=== PATIENT | male | born 1955 | race Hispanic/Latino ===

== ENCOUNTER 2017-03-14 09:12 | Emergency (ER) | payer MEDICAID ==
[2017-03-14 09:13] VITALS: BMI 22.8
[2017-03-14 09:57] VITALS: RESP 18; TEMP 98.1; O2SAT 100
--- NOTE | 2017-03-14 10:02 | ED PDOC ---
Arrival/HPI - History of Present Illness Time/Duration: Other (about 12 hours ago) <Caitlin Montana - Last Filed: 03/14/17 11:35> <Cele Ridley - Last Filed: 03/14/17 12:05> - General Chief Complaint: Abnormal Skin Integrity Time Seen by Provider: 03/14/17 09:58 - History of Present Illness Narrative History of Present Illness (Text): 03/14/17 09:59 62M presents to ER with laceration on face after a fall. Patient was taking his mom home and tripped and fell faceforward onto handlebars of a wheelchair at home yesterday afternoon (mechanical fall). Patient states he could not come in until today because the tile setter apprentice wasn't home to take care of his mother. Patient denies loss of consciousness, headache, vision changes. Patient states he has no other complaints. Patient requests doctor's note for visit (Caitlin Montana ) Past Medical History - Tetanus Immunization Tetanus Immunization: Unknown - Past Medical History Past Medical History: No Previous - Cardiac Hx Cardiac Disorders: No - Pulmonary Hx Respiratory Disorders: Yes Hx Emphysema: Yes - Neurological Hx Neurological Disorder: No - HEENT Hx HEENT Disorder: No - Renal Hx Renal Disorder: No - Endocrine/Metabolic Hx Endocrine Disorders: No - Hematological/Oncological Hx Blood Disorders: No - Integumentary Hx Dermatological Disorder: No - Musculoskeletal/Rheumatological Hx Musculoskeletal Disorders: No - Gastrointestinal Hx Gastrointestinal Disorders: No - Genitourinary/Gynecological Hx Genitourinary Disorders: No - Psychiatric Hx Psychophysiologic Disorder: No Hx Substance Use: No - Past Surgical History Past Surgical History: No Previous - Anesthesia Hx Anesthesia: No - Suicidal Assessment Feels Threatened In Home Enviroment: No <Caitlin Montana - Last Filed: 03/14/17 11:35> Family/Social History Family/Social History: Unknown Family HX Smoking Status: Heavy Smoker > 10 Cigarettes Daily Hx Alcohol Use: No Hx Substance Use: No Hx Substance Use Treatment: Yes <Caitlin Montana - Last Filed: 03/14/17 11:35> Allergies/Home Meds <Caitlin Montana - Last Filed: 03/14/17 11:35> <Cele Ridley - Last Filed: 03/14/17 12:05> Allergies/Adverse Reactions: Allergies No Known Allergies Allergy (Verified 03/14/17 09:39) Review of Systems - Physician Review All systems were reviewed & negative as marked: Yes - Review of Systems Eyes: absent: Vision Changes, Photophobia, Eye Pain ENT: absent: Hearing Changes, Tinnitus, TMJ Pain Respiratory: absent: SOB, Cough, Sputum, Wheezing Cardiovascular: absent: Chest Pain, Palpitations, Edema Gastrointestinal: absent: Abdominal Pain, Stool Changes, Constipation, Diarrhea Genitourinary Male: absent: Dysuria, Frequency, Hematuria Musculoskeletal: absent: Arthralgias, Back Pain, Neck Pain, Joint Swelling Skin: absent: Rash, Pruritis, Skin Lesions, Laceration, Abscess Neurological: absent: Headache, Dizziness, Focal Weakness, Gait Changes, Speech Changes, Facial Droop, Disequilibrium, Seizure Hemo/Lymphatic: absent: Adenopathy, Easy Bleeding, Easy Bruising Psychiatric: absent: Anxiety, Depression, Suicidal Ideation <Eng,Caitlin - Last Filed: 03/14/17 11:35> Physical Exam Temperature: Afebrile Blood Pressure: Hypertensive Pulse: Regular Respiratory Rate: Normal Appearance: Positive for: Comfortable Pain Distress: Mild Mental Status: Positive for: Alert and Oriented X 3 - Systems Exam Head: Present: Normocephalic, Laceration Pupils: Present: PERRL Extroacular Muscles: Present: EOMI. No: Gaze Palsy Conjunctiva: Present: Normal. No: Injected Ears: Present: NORMAL TM. No: Erythema, Normal Canal Mouth: Present: Moist Mucous Membranes, Normal Teeth Pharnyx: Present: Normal Nose (External): Present: Atraumatic Nose (Internal): Present: Normal Inspection Neck: Present: Normal Range of Motion. No: JVD, Lymphadenopathy Respiratory/Chest: Present: Clear to Auscultation. No: Good Air Exchange, Accessory Muscle Use Cardiovascular: Present: Regular Rate and Rhythm, Normal S1, S2 Upper Extremity: Present: Normal Inspection, Capillary Refill < 2s Lower Extremity: Present: Normal Inspection, Capillary Refill < 2 s Skin: Present: Warm, Laceration (right cheek, skin flap is not viable for suturing) Psychiatric: Present: Alert, Oriented x 3 <Eng,Caitlin - Last Filed: 03/14/17 11:35> Vital Signs Temp Pulse Resp BP Pulse Ox 03/14/17 11:11 62 18 168/79 H 100 03/14/17 09:56 98.1 F 64 18 177/84 H 100 Medical Decision Making Re-evaluation Time: 11:20 Reassessment Condition: Re-examined, Unchanged <Caitlin Montana - Last Filed: 03/14/17 11:35> <Cele Ridley - Last Filed: 03/14/17 12:05> ED Course and Treatment: 03/14/17 11:36 Patient cleaned and dressings placed. (Caitlin Montana) 03/14/17 11:40 Nima Koenig a 62 year old male who presents to the emergency department complaining of a laceration s/p fall yesterday afternoon. In agreement with resident note, which includes further HPI details. Patient was seen and evaluated with resident, came up with plan and treatment together. (Cele Ridley) - PA / PARTNER [employer]NER / Resident Statement MD/DO has reviewed & agrees with the documentation as recorded. <Cele Ridley - Last Filed: 03/14/17 12:05> Disposition/Present on Arrival - Present on Arrival Any Indicators Present on Arrival: Yes History of DVT/PE: No History of Uncontrolled Diabetes: No Urinary Catheter: No History of Decub. Ulcer: No History Surgical Site Infection Following: None - Disposition Have Diagnosis and Disposition been Completed?: Yes Disposition Time: 11:37 Patient Plan: Discharge <Caitlin Montana - Last Filed: 03/14/17 11:35> - Present on Arrival Any Indicators Present on Arrival: Yes <Cele Ridley - Last Filed: 03/14/17 12:05> - Disposition Diagnosis: Laceration of face with delay in treatment Disposition: HOME/ ROUTINE Patient Problems: Current Active Problems Problem Status Onset Laceration of face with delay in treatment Acute Condition: FAIR Discharge Instructions (ExitCare): Facial Laceration (ED), Laceration Without Closure (ED) Print Language: CROATIAN Additional Instructions: Please apply bacitracin or neosporin 2-3 x daily. Return for any signs of worsiening infection such as 1) spreading redness 2) pustulent leakage/drainage 3) intractable facial pain w/ heat as then you may need antibiotics and further investigation. Prescriptions: Bacitracin OINT 1 applic TOP TID #1 tube Referrals: Don Rod MD [Primary Care Provider] - Follow up with primary Forms: [facility] (Yoruba)
[2017-03-14 11:12] VITALS: BP 168/79; PULSE 62
== END 2017-03-14 12:36 | disposition home or self-care (01) ==
LOC: ED 09:12
DX: S01.411A Laceration without foreign body of right cheek and temporomandibular area, initial encounter (principal); W01.198A Fall on same level from slipping, tripping and stumbling with subsequent striking against other object, initial encounter; Y92.009 Unspecified place in unspecified non-institutional (private) residence as the place of occurrence of the external cause

== ENCOUNTER 2018-02-02 10:38 | Inpatient (IN) | payer MEDICAID ==
[2018-02-02 10:53] VITALS: BMI 20.7
--- NOTE | 2018-02-02 11:19 | ED PDOC ---
Arrival/HPI - General Chief Complaint: Psychiatric Evaluation - History of Present Illness Narrative History of Present Illness (Text): 02/02/18 11:19 62 y/o M w/ pmhx of bipolar disorder, presents to the emergency department accompanied by his brother for a psychiatric evaluation. Patient's brother reports patient has been having an emotional crisis ever since their mother pas sed away a few days ago and is living alone for the first time. Per patient's brother, for 3 days straight the patient has not been sleeping properly and went out during the night stealing Scooby trees from a local shop. The patient's brother states the patient is not on any current medication and is able to take care of himself. Patient denies any fever, chills, shortness of breath, chest pain, diarrhea, nausea, vomiting, urinary symptoms, back pain, neck pain, headache, dizziness, SI, HI, or any other complaints. PMD: Dr. 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 - HEENT Hx HEENT Disorder: No - Renal Hx Renal Disorder: No - Endocrine/Metabolic Hx Endocrine Disorders: No - Hematological/Oncological Hx Blood Disorders: No - Integumentary Hx Dermatological Disorder: No - Musculoskeletal/Rheumatological Hx Musculoskeletal Disorders: No - Gastrointestinal Hx Gastrointestinal Disorders: No - Genitourinary/Gynecological Hx Genitourinary Disorders: No - Psychiatric Hx Psychophysiologic Disorder: No Hx Substance Use: No - Past Surgical History Past Surgical History: No Previous - Anesthesia Hx Anesthesia: No Hx Anesthesia Reactions: No Hx Malignant Hyperthermia: No - Suicidal Assessment Feels Threatened In Home Enviroment: No Family/Social History - Physician Review Nursing Documentation Reviewed: Yes Family/Social History: Unknown Family HX Smoking Status: Heavy Smoker > 10 Cigarettes Daily Hx Alcohol Use: No Hx Substance Use: No Hx Substance Use Treatment: Yes Allergies/Home Meds Allergies/Adverse Reactions: Allergies No Known Allergies Allergy (Verified 02/05/18 20:39) Review of Systems - Physician Review All systems were reviewed & negative as marked: Yes - Review of Systems Constitutional: absent: Fevers, Night Sweats Respiratory: absent: SOB Cardiovascular: absent: Chest Pain Gastrointestinal: absent: Diarrhea, Nausea, Vomiting Genitourinary Male: absent: Urinary Output Changes Musculoskeletal: absent: Back Pain, Neck Pain Neurological: absent: Headache, Dizziness Psychiatric: absent: Suicidal Ideation Physical Exam Vital Signs Reviewed: Yes Vital Signs Temp Pulse Resp BP Pulse Ox 02/02/18 10:59 98.0 F 76 16 173/95 H 98 Temperature: Afebrile Blood Pressure: Hypertensive Pulse: Regular Respiratory Rate: Normal Appearance: Positive for: Well-Appearing, Non-Toxic, Comfortable Pain Distress: None - Systems Exam Head: Present: Atraumatic, Normocephalic Pupils: Present: PERRL Extroacular Muscles: Present: EOMI Conjunctiva: Present: Normal Mouth: Present: Moist Mucous Membranes Neck: Present: Normal Range of Motion Respiratory/Chest: Present: Clear to Auscultation, Good Air Exchange. No: Respiratory Distress, Accessory Muscle Use Cardiovascular: Present: Regular Rate and Rhythm, Normal S1, S2. No: Murmurs Abdomen: No: Tenderness, Distention, Peritoneal Signs Back: Present: Normal Inspection Upper Extremity: Present: Normal Inspection. No: Cyanosis, Edema Lower Extremity: Present: Normal Inspection. No: Edema Neurological: Present: GCS=15, CN II-XII Intact, Speech Normal Skin: Present: Warm, Dry, Normal Color. No: Rashes Psychiatric: Present: Alert, Oriented x 3, Normal Insight, Normal Concentration Medical Decision Making ED Course and Treatment: 02/02/18 11:20 Impression: 62 y/o M presents to the emergency department accompanied by his brother for a psychiatric evaluation. Differential Diagnosis included but are not limited to: --Depression --Adjustment disorder --Schizoaffective disorder Plan: -- Labs -- Chest X-ray -- Urinalysis --Urine drug screen --PES evaluation -- Reassess and disposition Prior Visits: Notes and results from previous visits were reviewed. Progress Notes: 02/02/18 13:04 Labs reviewed with no acute abnormalities. Patient is medically cleared. PES wind projects supervisor called. 02/02/18 19:15 Patient accepted onto psychiatric floor under Dr. Judge. He is stable for transport. - Lab Interpretations Lab Results: 02/02/18 11:05 02/02/18 11:05 Lab Results 02/02/18 12:05: Urine Color Yellow, Urine Appearance Clear, Urine pH 7.0, Ur Specific [place] <= 1.005, Urine Protein Negative, Urine Glucose (UA) Negative, Urine Ketones Negative, Urine Blood Negative, Urine Nitrate Negative, Urine Bilirubin Negative, Urine Urobilinogen 0.2, Ur Leukocyte Esterase Negative 02/02/18 12:05: Urine Opiates Screen Negative, Urine Methadone Screen Negative, Ur Barbiturates Screen Negative, Ur Phencyclidine Scrn Negative, Ur Amphetamines Screen Negative, U Benzodiazepines Scrn Negative, U Oth Cocaine Metabols Negative, U Cannabinoids Screen Negative 02/02/18 11:05: Free T4 1.07, TSH 3rd Generation 2.37, Alcohol, Quantitative < 10 02/02/18 11:05: Sodium 140, Potassium 3.6, Chloride 107, Carbon Dioxide 31, Anion Gap 6 L, BUN 17, Creatinine 0.8, Est GFR ( Amer) > 60, Est GFR (Non-Af Amer) > 60, Random Glucose 122 H, Calcium 9.7, Total Bilirubin 0.5, AST 27, ALT 27, Alkaline Phosphatase 80, Total Protein 6.7, Albumin 4.0, Globulin 2.7, Albumin/Globulin Ratio 1.5 02/02/18 11:05: WBC 9.9, RBC 4.60, Hgb 15.5, Hct 46.0, MCV 100.0, MCH 33.7, MCHC 33.7, RDW 13.4, Plt Count 250, MPV 9.6, Gran % 75.4 H, Lymph % (Auto) 19.3 L, [place] % (Auto) 4.7, Eos % (Auto) 0.3 L, Baso % (Auto) 0.3, Gran # 7.47 H, Lymph # (Auto) 1.9, [place] # (Auto) 0.5, Eos # (Auto) 0.0, Baso # (Auto) 0.03 02/02/18 11:05: Salicylates < 1 L, Acetaminophen < 10.0 L - RAD Interpretation Narrative RAD Interpretations (Text): 12/07/18 13:22 Procedure: Chest X-ray Impression: No active disease. Dictator: Joselito Mcintosh MD Radiology Orders: 02/02/18 11:04 CHEST PORTABLE [RAD] Stat High Wire Artist: Radiologist - Ndaineibsilverio Statement The provider has reviewed the documentation as recorded by the Nadineibsilverio Finch All medical record entries made by the Scribe were at my direction and personally dictated by me. I have reviewed the chart and agree that the record accurately reflects my personal performance of the history, physical exam, medical decision making, and the department course for this patient. I have also personally directed, reviewed, and agree with the discharge instructions and disposition. Disposition/Present on Arrival - Present on Arrival Any Indicators Present on Arrival: No History of DVT/PE: No History of Uncontrolled Diabetes: No Urinary Catheter: No History of Decub. Ulcer: No History Surgical Site Infection Following: None - Disposition Have Diagnosis and Disposition been Completed?: Yes Diagnosis: Adjustment disorder Disposition: HOSPITALIZED Disposition Time: 18:15 Patient Plan: Admission Patient Problems: Current Active Problems Problem Status Onset Adjustment disorder Acute Condition: STABLE
[2018-02-02 11:23] LABS: BASO # 0.03 K/mm3 (0.0-2.0); BASO % 0.3 % (0.0-3.0); EOS % 0.3 % (1.5-5.0); GRAN # 7.47 (1.4-6.5); GRAN % 75.4 % (50.0-68.0); HEMOGLOBIN 15.5 g/dL (14.0-18.0); LYMPH # 1.9 (1.2-3.4); LYMPH % 19.3 % (22.0-35.0); MEAN CORPUSCULAR HEMOGLOBIN 33.7 pg (25.0-35.0); MEAN CORPUSCULAR HGB CONC 33.7 g/dl (31.0-37.0); MEAN PLATELET VOLUME 9.6 fl (7.0-11.0); MONO # 0.5 (0.1-0.6); MONO % 4.7 % (1.0-6.0); RBC 4.6 10^6/uL (3.5-6.1); RED CELL DISTRIBUTION WIDTH 13.4 % (11.5-14.5); WHITE BLOOD COUNT 9.9 10^3/uL (4.5-11.0)
[2018-02-02 11:40] LABS: ALB/GLOB RATIO 1.5 (1.1-1.8); ALT/SGPT 27 U/L (7-56); AST/SGOT 27 U/L (17-59); BLOOD UREA NITROGEN 17 mg/dL (7-21); CALCIUM 9.7 mg/dL (8.4-10.5); GFR NON-AFRICAN AMERICAN > 60
[2018-02-02 11:52] LABS: ACETAMINOPHEN < 10.0 ug/ml (10.0-20.0); SALICYLATE < 1 mg/dL (2.0-20.0)
[2018-02-02 12:09] LABS: FREE T4 1.07 ng/dL (0.78-2.19)
[2018-02-02 12:21] LABS: URINE BILIRUBIN NEGATIVE (NEGATIVE); URINE BLOOD NEGATIVE (NEGATIVE); URINE GLUCOSE (UA) NEGATIVE (NEGATIVE); URINE LEUKOCYTE ESTERASE NEGATIVE Leu/uL (NEGATIVE); URINE PROTEIN NEGATIVE mg/dL (<30 mg/dL); URINE UROBILINOGEN 0.2 E.U./dL (<1 E.U./dL)
[2018-02-02 12:25] LABS: URINE APPEARANCE CLEAR (CLEAR); URINE COLOR YELLOW (YELLOW)
[2018-02-02 12:40] LABS: BARBITURATES, UR NEGATIVE (NEGATIVE); BENZODIAZEPINES, UR NEGATIVE (NEGATIVE); OPIATES, UR NEGATIVE (NEGATIVE); PHENCYCLIDINE, UR NEGATIVE (NEGATIVE)
--- NOTE | 2018-02-02 12:56 | RAD ---
Date of service: 02/02/2018 HISTORY: sob COMPARISON: No prior. FINDINGS: LUNGS: No active pulmonary disease. PLEURA: No significant pleural effusion identified, no pneumothorax apparent. CARDIOVASCULAR: No aortic atherosclerotic calcification present. Normal cardiac size. No pulmonary vascular congestion. OSSEOUS STRUCTURES: Severe scoliosis convex to the right VISUALIZED UPPER ABDOMEN: Normal. OTHER FINDINGS: None. IMPRESSION: No active disease.
--- NOTE | 2018-02-02 16:17 | CARD ---
APPROVED REPORT Date of service: 02/02/2018 EKG Measurement Heart [id number] <Conclusion> Normal sinus rhythm Possible Left atrial enlargement Borderline ECG
[2018-02-02 21:54] VITALS: O2SAT 100
[2018-02-02] MEDS ORDERED: Magnesium Hydroxide Susp 30 ml UD PO PRN (22:31)
[2018-02-02] MEDS ORDERED: Alum-Mag Hydrox-Simethicone Susp (30 mL) PO PRN (22:32)
--- NOTE | 2018-02-02 23:29 | PCM.BM ---
Treatment Plan Problems - Problems identified on initial assessmt Ineffective coping Date Initiated: 02/02/18 Time Initiated: 22:50 Assessment reference: NA Status: Active
[2018-02-03] MEDS: Divalproex 250 mg DR (BID formulation) PO SCH ×2 (10:55→22:09)
--- NOTE | 2018-02-03 11:12 | PCM.PSYCH ---
Initial Psychiatric Evaluation - Initial Psychiatric Evaluation Type of Admission: Voluntary Legal Status: Capacity History of Present Illness and Precipitating Events: Patient is a 62 yo single male with a reported psychiatric history of bipolar disorder, no prior psychiatric admissions, very remote treatment of vincent with lithium x25 years ago e who was brought to the ER by his brother, Chinmay Lloyd (who is reportedly his POA) for a psychiatric evaluation after patient demonstrated change in mental status and behavior following the of his mother a few days ago. According to ER records patient is now living alone after his mother a few days ago. Patient has not been sleeping for 3-4 days and acting impulsively/bizarrely. Apparently he recently went out at night stealing [employer] trees from a local shop. Patient's brother is patient's POA and feels that patient cannot care for himself. POA indicated that patient suffered a TBI as an and had [place] measles as a child. I met with patient at bedside. He is well groomed and oriented to month, year, location and superficially to circumstances. He is cooperative and has been in good control. Indicates that he feels "a lot better now" since he was able to sleep. Indicates he has been stressed and grieving the of his mother which contributed to his lack of sleep. Then the lack of sleep contributed to his strange behaviors. He seems remorseful and fairly related though odd. Patient denies any hallucinations, paranoia, SI or HI. Tolerating medications and denies any new discomfort or pain. PSYCHIATRIC HISTORY Prior diagnosis of bipolar disorder. Treated >25 years ago for a manic episode. No current outpatient treatment or medications. SOCIAL HISTORY Single. No kids. Graduated HS. Currently resides by himself since his mother a few days ago. His brother, Chinmay Lloyd is patient's POA and was mother' s POA as well. 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 Patient denies any illicit drugs or alcohol use. He smokes a pack of cigarettes daily. Current Medications: Active Medications Generic Name Dose Route Start Last Admin Trade Name Freq PRN Reason Stop Dose Admin Acetaminophen 650 mg 02/02/18 22:31 Tylenol 325mg Tab PO Q4H PRN Pain, moderate (4-7) Al Hydrox/Mg Hydrox/Simethicone 30 ml 02/02/18 22:32 Maalox Plus 30 Ml PO DAILY PRN Indigestion / Heartburn Chlorpromazine 50 mg 02/02/18 22:35 Thorazine PO Q6 PRN Agitation Protocol Divalproex Sodium 250 mg 02/03/18 10:00 Depcarlos Cat (*Bid*) PO [facility] CHRISTINA Protocol Magnesium Hydroxide 30 ml 02/02/18 22:31 Milk Of Magnesia PO DAILY PRN Constipation Quetiapine Fumarate 50 mg 02/03/18 22:00 Seroquel PO HS CHRISTINA Protocol Zaleplon 5 mg 02/02/18 22:34 Sonata PO HS PRN Insomnia Present on Admission - Present on Admission Any Indicators Present on Admission: No - Notes: Notes:: Please refer to patient's physical exam and ROS findings from [facility] ER report dated 02/02/18 Review of Systems - Review of Systems Review of Systems: Please refer to patient's physical exam and ROS findings from [facility] ER report dated 02/02/18 - Constitutional Constitutional: As Per HPI - EENT Eyes: As Per HPI Ears: As Per HPI Nose/Mouth/Throat: As Per HPI - Cardiovascular Cardiovascular: As Per HPI - Respiratory Respiratory: As Per HPI - Gastrointestinal Gastrointestinal: As Per HPI - Genitourinary Genitourinary: As Per HPI, Urinary Hesitance - Reproductive: Male Reproductive:Male: As Per HPI - Musculoskeletal Musculoskeletal: As Per HPI - Neurological Neurological: As Per HPI - Psychiatric Psychiatric: As Per HPI - Endocrine Endocrine: As Per HPI - Hematologic/Lymphatic Hematologic: As Per HPI Past Patient History - Past Psychiatric History Previous Treatment History: Inpatient Prior Professional Help: See HPI - PSYCHIATRIC Hx Psychophysiologic Disorder: No Hx Substance Use: No - Tetanus Immunizations Tetanus Immunization: Unknown - CARDIAC Hx Cardiac Disorders: No - PULMONARY Hx Respiratory Disorders: Yes Hx Emphysema: Yes - NEUROLOGICAL Hx Neurological Disorder: Yes Other/Comment: TBI as s/p [place] measles. - HEENT Hx HEENT Problems: No - RENAL Hx Chronic Kidney Disease: No - ENDOCRINE/METABOLIC Hx Endocrine Disorders: No - HEMATOLOGICAL/ONCOLOGICAL Hx Blood Disorders: No - INTEGUMENTARY Hx Dermatological Problems: No - MUSCULOSKELETAL/RHEUMATOLOGICAL Hx Musculoskeletal Disorders: No - GASTROINTESTINAL Hx Gastrointestinal Disorders: No - GENITOURINARY/GYNECOLOGICAL Hx Genitourinary Disorders: No - SURGICAL HISTORY Hx Surgeries: No - ANESTHESIA Hx Anesthesia: No Hx Anesthesia Reactions: No Hx Malignant Hyperthermia: No - Medical/Surgical History Reviewed & confirmed: by nm Meds Allergies/Adverse Reactions: Allergies Allergy/AdvReac Type Severity Reaction Status Date / Time No Known Allergies Allergy Verified 03/14/17 09:39 Mental Status Examination - Personal Presentation Personal Presentation: Looks stated age - Affect Affect: Constricted - Motor Activity Motor Activity: Calm - Reliability in Providing Information Reliability in Providing Information: Fair - Speech Speech: Coherent - Mood Mood: Depressed - Formal Thought Process Formal Thought Process: No Impairment - Obsessions/Compulsions Obsessions: No Compulsions: No - Cognitive Functions Orientation: Person, Place Sensorium: Alert, Lethargic Attention/Concentration: Easily distracted Abstract Thinking: [place] Estimate of Intelligence: Average Judgement: Imparied, as evidence by: Poor judgement, Imparied, as evidence by: Lack of insight into illness - Risk Risk: Diminished functioning - Strength & Assets Inventory Strength & Assets Inventory: Cooperative - Limitations Limitations: Living alone Psychiatric Physical Exam - Physical Exam Reviewed and confirmed: Emergency Department Physical Exam (Please refer to patient's physical exam and ROS findings from [facility] ER report dated 02/02/18) Results - Vital Signs Recent Vital Signs: Last Vital Signs Temp 98.0 F 02/02/18 10:59 Pulse 70 02/02/18 21:45 Resp 18 02/02/18 22:54 BP 144/87 02/02/18 21:45 Pulse Ox 100 02/02/18 21:45 - Labs Result Diagrams: 02/02/18 11:05 02/02/18 11:05 Labs: Laboratory Results - last 24 hr 02/02/18 02/02/18 02/02/18 11:05 11:05 11:05 WBC 9.9 RBC 4.60 Hgb 15.5 Hct 46.0 MCV 100.0 MCH 33.7 MCHC 33.7 RDW 13.4 Plt Count 250 MPV 9.6 Gran % 75.4 H Lymph % (Auto) 19.3 L [place] % (Auto) 4.7 Eos % (Auto) 0.3 L Baso % (Auto) 0.3 Gran # 7.47 H Lymph # (Auto) 1.9 [place] # (Auto) 0.5 Eos # (Auto) 0.0 Baso # (Auto) 0.03 Sodium 140 Potassium 3.6 Chloride 107 Carbon Dioxide 31 Anion Gap 6 L BUN 17 Creatinine 0.8 Est GFR ( Amer) > 60 Est GFR (Non-Af Amer) > 60 Random Glucose 122 H Calcium 9.7 Total Bilirubin 0.5 AST 27 ALT 27 Alkaline Phosphatase 80 Total Protein 6.7 Albumin 4.0 Globulin 2.7 Albumin/Globulin Ratio 1.5 Free T4 TSH 3rd Generation Urine Color Urine Appearance Urine pH Ur Specific [place] Urine Protein Urine Glucose (UA) Urine Ketones Urine Blood Urine Nitrate Urine Bilirubin Urine Urobilinogen Ur Leukocyte Esterase Salicylates < 1 L Urine Opiates Screen Urine Methadone Screen Acetaminophen < 10.0 L Ur Barbiturates Screen Ur Phencyclidine Scrn Ur Amphetamines Screen U Benzodiazepines Scrn U Oth Cocaine Metabols U Cannabinoids Screen Alcohol, Quantitative 02/02/18 02/02/18 02/02/18 11:05 12:05 12:05 WBC RBC Hgb Hct MCV MCH MCHC RDW Plt Count MPV Gran % Lymph % (Auto) [place] % (Auto) Eos % (Auto) Baso % (Auto) Gran # Lymph # (Auto) [place] # (Auto) Eos # (Auto) Baso # (Auto) Sodium Potassium Chloride Carbon Dioxide Anion Gap BUN Creatinine Est GFR ( Amer) Est GFR (Non-Af Amer) Random Glucose Calcium Total Bilirubin AST ALT Alkaline Phosphatase Total Protein Albumin Globulin Albumin/Globulin Ratio Free T4 1.07 TSH 3rd Generation 2.37 Urine Color Yellow Urine Appearance Clear Urine pH 7.0 Ur Specific [place] <= 1.005 Urine Protein Negative Urine Glucose (UA) Negative Urine Ketones Negative Urine Blood Negative Urine Nitrate Negative Urine Bilirubin Negative Urine Urobilinogen 0.2 Ur Leukocyte Esterase Negative Salicylates Urine Opiates Screen Negative Urine Methadone Screen Negative Acetaminophen Ur Barbiturates Screen Negative Ur Phencyclidine Scrn Negative Ur Amphetamines Screen Negative U Benzodiazepines Scrn Negative U Oth Cocaine Metabols Negative U Cannabinoids Screen Negative Alcohol, Quantitative < 10 - Impressions Impression: Please refer to patient's physical exam and ROS findings from [facility] ER report dated 02/02/18 DSM Plan - DSM 5 DSM 5 Diagnosis: Bipolar Disorder by hx Grief reaction - Recommended/Plan of Treatment Treatment Recommendations and Plan of Treatment: * Group, milieu and supportive tx * Depakote 250 mg AM and HS * Seroquel 50 mg po HS for disorganization * Sonata 5 mg HS prn: insomnia * Vitals reviewed and noted below: Selected Entries 02/02/18 02/02/18 02/02/18 10:59 12:38 14:55 Temperature 98.0 F Pulse Rate 76 72 69 Respiratory 16 18 18 Rate Blood Pressure 173/95 H 169/72 H 159/88 H 02/02/18 02/02/18 02/02/18 16:00 18:00 21:45 Temperature Pulse Rate 72 72 70 Respiratory 16 18 Rate Blood Pressure 153/69 H 159/69 H 144/87 ER LABS AND STUDIES * Please refer to patient's physical exam and ROS findings from [facility] ER report dated 02/02/18 * 02/02/18 13:22 Procedure: Chest X-ray Impression: No active disease. Dictator: Joselito Mcintosh MD Laboratory Tests 02/02/18 02/02/18 02/02/18 11:05 11:05 11:05 WBC 9.9 RBC 4.60 Hgb 15.5 Hct 46.0 MCV 100.0 MCH 33.7 MCHC 33.7 RDW 13.4 Plt Count 250 MPV 9.6 Gran % 75.4 H Lymph % (Auto) 19.3 L [place] % (Auto) 4.7 Eos % (Auto) 0.3 L Baso % (Auto) 0.3 Gran # 7.47 H Lymph # (Auto) 1.9 [place] # (Auto) 0.5 Eos # (Auto) 0.0 Baso # (Auto) 0.03 Sodium 140 Potassium 3.6 Chloride 107 Carbon Dioxide 31 Anion Gap 6 L BUN 17 Creatinine 0.8 Est GFR ( Amer) > 60 Est GFR (Non-Af Amer) > 60 Random Glucose 122 H Calcium 9.7 Total Bilirubin 0.5 AST 27 ALT 27 Alkaline Phosphatase 80 Total Protein 6.7 Albumin 4.0 Globulin 2.7 Albumin/Globulin Ratio 1.5 Free T4 TSH 3rd Generation Urine Color Urine Appearance Urine pH Ur Specific [place] Urine Protein Urine Glucose (UA) Urine Ketones Urine Blood Urine Nitrate Urine Bilirubin Urine Urobilinogen Ur Leukocyte Esterase Salicylates < 1 L Urine Opiates Screen Urine Methadone Screen Acetaminophen < 10.0 L Ur Barbiturates Screen Ur Phencyclidine Scrn Ur Amphetamines Screen U Benzodiazepines Scrn U Oth Cocaine Metabols U Cannabinoids Screen Alcohol, Quantitative 02/02/18 02/02/18 02/02/18 11:05 12:05 12:05 WBC RBC Hgb Hct MCV MCH MCHC RDW Plt Count MPV Gran % Lymph % (Auto) [place] % (Auto) Eos % (Auto) Baso % (Auto) Gran # Lymph # (Auto) [place] # (Auto) Eos # (Auto) Baso # (Auto) Sodium Potassium Chloride Carbon Dioxide Anion Gap BUN Creatinine Est GFR ( Amer) Est GFR (Non-Af Amer) Random Glucose Calcium Total Bilirubin AST ALT Alkaline Phosphatase Total Protein Albumin Globulin Albumin/Globulin Ratio Free T4 1.07 TSH 3rd Generation 2.37 Urine Color Yellow Urine Appearance Clear Urine pH 7.0 Ur Specific [place] <= 1.005 Urine Protein Negative Urine Glucose (UA) Negative Urine Ketones Negative Urine Blood Negative Urine Nitrate Negative Urine Bilirubin Negative Urine Urobilinogen 0.2 Ur Leukocyte Esterase Negative Salicylates Urine Opiates Screen Negative Urine Methadone Screen Negative Acetaminophen Ur Barbiturates Screen Negative Ur Phencyclidine Scrn Negative Ur Amphetamines Screen Negative U Benzodiazepines Scrn Negative U Oth Cocaine Metabols Negative U Cannabinoids Screen Negative Alcohol, Quantitative < 10 Projected ELOS: 7 days Prognosis: Guarded Discharge Plan and Discharge Criteria: Outpatient psychiatric f/u - Tobacco Cessation Tobacco Use Status for the last 30 days: Heavy User(>=5 cigs &/or cigars/pipes daily) Tobacco Use Treatment Practical Counseling Provided: Yes Reason for not providing: Patient refused despite counseling Tobacco Use Treatment FDA-Approved Cessation Medication Provided: No Reason for not providing: Patient refused tobacco cessation medication, Other - Alcohol or Substance Abuse Does the patient have an Alcohol or Substance Abuse Disorder: No Initial Psych Certification - Initial Certification I certify that the inpatient psychiatric facility admission was medically necessary for either: Treatment which could reasonbly be expected to improve pt's condition, Diagnostic study I estimate of hospitalization is necessary for proper treatment of the patient: 7 Unit of Time: Days
--- NOTE | 2018-02-04 09:25 | PCM.PYCHPN ---
Psychiatric Progress Note - Psychiatric Progress Note Patient seen today, length of contact: 25 Min Problems Identified/Issues Discussed: History of Present Illness and Precipitating Events: Patient is a 62 yo single male with a reported psychiatric history of bipolar disorder, no prior psychiatric admissions, very remote treatment of vincent with lithium x25 years ago e who was brought to the ER by his brother, Chinmay Lloyd (who is reportedly his POA) for a psychiatric evaluation after patient demonstrated change in mental status and behavior following the of his mother a few days ago. According to ER records patient is now living alone after his mother a few days ago. Patient has not been sleeping for 3-4 days and acting impulsively/bizarrely. Apparently he recently went out at night stealing [place] trees from a local shop. Patient's brother is patient's POA and feels that patient cannot care for himself. POA indicated that patient suffered a TBI as an and had [place] measles as a child. I met with patient at bedside. He is well groomed and oriented to month, year, location and superficially to circumstances. He is cooperative and has been in good control. Indicates that he feels "a lot better now" since he was able to sleep. Indicates he has been stressed and grieving the of his mother which contributed to his lack of sleep. Then the lack of sleep contributed to his strange behaviors. He seems remorseful and fairly related though odd. Patient denies any hallucinations, paranoia, SI or HI. Tolerating medications and denies any new discomfort or pain. PSYCHIATRIC HISTORY Prior diagnosis of bipolar disorder. Treated >25 years ago for a manic episode. No current outpatient treatment or medications. SOCIAL HISTORY Single. No kids. Graduated HS. Currently resides by himself since his mother a few days ago. His brother, Chinmay Lloyd is patient's POA and was mother's POA as well. 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 Patient denies any illicit drugs or alcohol use. He smokes a pack of cigarettes daily. PROGRESS NOTE I reviewed recent notes and met with patient at bedside again. He is groomed and oriented to month, year, location and superficially to circumstances. He remains cooperative and in good control on the unit. Indicates that he feels "a lot better now" and reported sleeping well again last night. Patient has been visible and friendly on the unit though a little oddly related. Patient denies any hallucinations, paranoia, SI or HI. Tolerating medications and denies any new discomfort or pain. No manic or psychotic behaviors have been observed thus far. Diagnostic Results: Bipolar Disorder by hx Grief reaction Mental Status Examination - Cognitive Function Orientation: Person, Place Attention: WNL Concentration: WNL Association: Loose Fund of Knowledge: Poor - Mood Mood: Depressed - Affect Affect: Constricted - Formal Thought Process Formal Thought Process: No Impairment - Suicidal Ideation Suicidal Ideation: No - Homicidal Ideation Homicidal Ideation: No Goal/Treatment Plan - Goal/Treatment Plan Progress Toward Problem(s) and Goals/Treatment Plan: * Group, milieu and supportive tx * Depakote 250 mg AM and HS * Seroquel 50 mg po HS for disorganization * Sonata 5 mg HS prn: insomnia * Vitals reviewed and noted below: 02/03/18 07:25 Temperature 98.5 F Pulse Rate 66 Respiratory 20 Rate Blood Pressure 139/83 ER LABS AND STUDIES * Please refer to patient's physical exam and ROS findings from [facility] ER report dated 02/02/18 * 02/02/18 13:22 Procedure: Chest X-ray Impression: No active disease. Dictator: Joselito Mcintosh MD Laboratory Tests 02/02/18 02/02/18 02/02/18 11:05 11:05 11:05 WBC 9.9 RBC 4.60 Hgb 15.5 Hct 46.0 MCV 100.0 MCH 33.7 MCHC 33.7 RDW 13.4 Plt Count 250 MPV 9.6 Gran % 75.4 H Lymph % (Auto) 19.3 L [place] % (Auto) 4.7 Eos % (Auto) 0.3 L Baso % (Auto) 0.3 Gran # 7.47 H Lymph # (Auto) 1.9 [place] # (Auto) 0.5 Eos # (Auto) 0.0 Baso # (Auto) 0.03 Sodium 140 Potassium 3.6 Chloride 107 Carbon Dioxide 31 Anion Gap 6 L BUN 17 Creatinine 0.8 Est GFR ( Amer) > 60 Est GFR (Non-Af Amer) > 60 Random Glucose 122 H Calcium 9.7 Total Bilirubin 0.5 AST 27 ALT 27 Alkaline Phosphatase 80 Total Protein 6.7 Albumin 4.0 Globulin 2.7 Albumin/Globulin Ratio 1.5 Free T4 TSH 3rd Generation Urine Color Urine Appearance Urine pH Ur Specific [place] Urine Protein Urine Glucose (UA) Urine Ketones Urine Blood Urine Nitrate Urine Bilirubin Urine Urobilinogen Ur Leukocyte Esterase Salicylates < 1 L Urine Opiates Screen Urine Methadone Screen Acetaminophen < 10.0 L Ur Barbiturates Screen Ur Phencyclidine Scrn Ur Amphetamines Screen U Benzodiazepines Scrn U Oth Cocaine Metabols U Cannabinoids Screen Alcohol, Quantitative 02/02/18 02/02/18 02/02/18 11:05 12:05 12:05 WBC RBC Hgb Hct MCV MCH MCHC RDW Plt Count MPV Gran % Lymph % (Auto) [place] % (Auto) Eos % (Auto) Baso % (Auto) Gran # Lymph # (Auto) [place] # (Auto) Eos # (Auto) Baso # (Auto) Sodium Potassium Chloride Carbon Dioxide Anion Gap BUN Creatinine Est GFR ( Amer) Est GFR (Non-Af Amer) Random Glucose Calcium Total Bilirubin AST ALT Alkaline Phosphatase Total Protein Albumin Globulin Albumin/Globulin Ratio Free T4 1.07 TSH 3rd Generation 2.37 Urine Color Yellow Urine Appearance Clear Urine pH 7.0 Ur Specific [place] <= 1.005 Urine Protein Negative Urine Glucose (UA) Negative Urine Ketones Negative Urine Blood Negative Urine Nitrate Negative Urine Bilirubin Negative Urine Urobilinogen 0.2 Ur Leukocyte Esterase Negative Salicylates Urine Opiates Screen Negative Urine Methadone Screen Negative Acetaminophen Ur Barbiturates Screen Negative Ur Phencyclidine Scrn Negative Ur Amphetamines Screen Negative U Benzodiazepines Scrn Negative U Oth Cocaine Metabols Negative U Cannabinoids Screen Negative Alcohol, Quantitative < 10
[2018-02-04] MEDS: Divalproex 250 mg DR (BID formulation) PO SCH ×2 (09:52→22:57)
--- NOTE | 2018-02-05 09:01 | PCM.PYCHPN ---
Psychiatric Progress Note - Psychiatric Progress Note Patient seen today, length of contact: 25 Min Problems Identified/Issues Discussed: History of Present Illness and Precipitating Events: Patient is a 62 yo single male with a reported psychiatric history of bipolar disorder, no prior psychiatric admissions, very remote treatment of vincent with lithium x25 years ago e who was brought to the ER by his brother, Chinmay Lloyd (who is reportedly his POA) for a psychiatric evaluation after patient demonstrated change in mental status and behavior following the of his mother a few days ago. According to ER records patient is now living alone after his mother a few days ago. Patient has not been sleeping for 3-4 days and acting impulsively/bizarrely. Apparently he recently went out at night stealing [place] trees from a local shop. Patient's brother is patient's POA and feels that patient cannot care for himself. POA indicated that patient suffered a TBI as an and had [place] measles as a child. I met with patient at bedside. He is well groomed and oriented to month, year, location and superficially to circumstances. He is cooperative and has been in good control. Indicates that he feels "a lot better now" since he was able to sleep. Indicates he has been stressed and grieving the of his mother which contributed to his lack of sleep. Then the lack of sleep contributed to his strange behaviors. He seems remorseful and fairly related though odd. Patient denies any hallucinations, paranoia, SI or HI. Tolerating medications and denies any new discomfort or pain. PSYCHIATRIC HISTORY Prior diagnosis of bipolar disorder. Treated >25 years ago for a manic episode. No current outpatient treatment or medications. SOCIAL HISTORY Single. No kids. Graduated HS. Currently resides by himself since his mother a few days ago. His brother, Chinmay Lloyd is patient's POA and was mother's POA as well. 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 Patient denies any illicit drugs or alcohol use. He smokes a pack of cigarettes daily. PROGRESS NOTE I reviewed recent notes and met with patient in the dayroom and then again during treatment team meeting. He is groomed and oriented to month, year, location and superficially to circumstances. He remains cooperative and in good control on the unit. Consistently reports that he is feeling and sleeping better. 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 Patient has been visible and friendly on the unit though a little oddly related. Had a supportive visit with his brother yesterday per nursing report. Patient denies any hallucinations, paranoia, SI or HI. Tolerating medications and denies any new discomfort or pain. No manic or psychotic behaviors have been observed thus far. Diagnostic Results: Bipolar Disorder by hx Grief reaction Medication Change: No Medical Record Reviewed: Yes Mental Status Examination - Cognitive Function Orientation: Person, Place Attention: WNL Concentration: WNL Association: Loose Fund of Knowledge: Poor - Mood Mood: Depressed (grieving mother's ) - Affect Affect: Constricted (but very pleasant) - Speech Speech: Appropriate - Formal Thought Process Formal Thought Process: No Impairment - Suicidal Ideation Suicidal Ideation: No - Homicidal Ideation Homicidal Ideation: No Goal/Treatment Plan - Goal/Treatment Plan Progress Toward Problem(s) and Goals/Treatment Plan: * Group, milieu and supportive tx * Depakote 250 mg AM and HS * Seroquel 50 mg po HS for disorganization * Sonata 5 mg HS prn: insomnia * Vitals reviewed and noted below: 02/04/18 02/04/18 07:00 17:25 Temperature 97.9 F Pulse Rate 63 64 Respiratory 18 Rate Blood Pressure 152/87 H 156/79 H ER LABS AND STUDIES * Please refer to patient's physical exam and ROS findings from [facility] [place] ER report dated 02/02/18 * 02/02/18 13:22 Procedure: Chest X-ray Impression: No active disease. Dictator: Joselito Mcintosh MD Laboratory Tests 02/02/18 02/02/18 02/02/18 11:05 11:05 11:05 WBC 9.9 RBC 4.60 Hgb 15.5 Hct 46.0 MCV 100.0 MCH 33.7 MCHC 33.7 RDW 13.4 Plt Count 250 MPV 9.6 Gran % 75.4 H Lymph % (Auto) 19.3 L [place] % (Auto) 4.7 Eos % (Auto) 0.3 L Baso % (Auto) 0.3 Gran # 7.47 H Lymph # (Auto) 1.9 [place] # (Auto) 0.5 Eos # (Auto) 0.0 Baso # (Auto) 0.03 Sodium 140 Potassium 3.6 Chloride 107 Carbon Dioxide 31 Anion Gap 6 L BUN 17 Creatinine 0.8 Est GFR ( Amer) > 60 Est GFR (Non-Af Amer) > 60 Random Glucose 122 H Calcium 9.7 Total Bilirubin 0.5 AST 27 ALT 27 Alkaline Phosphatase 80 Total Protein 6.7 Albumin 4.0 Globulin 2.7 Albumin/Globulin Ratio 1.5 Free T4 TSH 3rd Generation Urine Color Urine Appearance Urine pH Ur Specific [place] Urine Protein Urine Glucose (UA) Urine Ketones Urine Blood Urine Nitrate Urine Bilirubin Urine Urobilinogen Ur Leukocyte Esterase Salicylates < 1 L Urine Opiates Screen Urine Methadone Screen Acetaminophen < 10.0 L Ur Barbiturates Screen Ur Phencyclidine Scrn Ur Amphetamines Screen U Benzodiazepines Scrn U Oth Cocaine Metabols U Cannabinoids Screen Alcohol, Quantitative 02/02/18 02/02/18 02/02/18 11:05 12:05 12:05 WBC RBC Hgb Hct MCV MCH MCHC RDW Plt Count MPV Gran % Lymph % (Auto) [place] % (Auto) Eos % (Auto) Baso % (Auto) Gran # Lymph # (Auto) [place] # (Auto) Eos # (Auto) Baso # (Auto) Sodium Potassium Chloride Carbon Dioxide Anion Gap BUN Creatinine Est GFR ( Amer) Est GFR (Non-Af Amer) Random Glucose Calcium Total Bilirubin AST ALT Alkaline Phosphatase Total Protein Albumin Globulin Albumin/Globulin Ratio Free T4 1.07 TSH 3rd Generation 2.37 Urine Color Yellow Urine Appearance Clear Urine pH 7.0 Ur Specific [place] <= 1.005 Urine Protein Negative Urine Glucose (UA) Negative Urine Ketones Negative Urine Blood Negative Urine Nitrate Negative Urine Bilirubin Negative Urine Urobilinogen 0.2 Ur Leukocyte Esterase Negative Salicylates Urine Opiates Screen Negative Urine Methadone Screen Negative Acetaminophen Ur Barbiturates Screen Negative Ur Phencyclidine Scrn Negative Ur Amphetamines Screen Negative U Benzodiazepines Scrn Negative U Oth Cocaine Metabols Negative U Cannabinoids Screen Negative Alcohol, Quantitative < 10
[2018-02-05] MEDS: Divalproex 250 mg DR (BID formulation) PO SCH ×2 (09:22→21:31)
--- NOTE | 2018-02-05 14:25 | CP.PCM.CON ---
History of Present Illness - History of Present Illness History of Present Illness: Neurology Consult Note for Dr. Holbrook Patient is a 63 yo M with PMH of bipolar disorder [place] [facility] [place] having an emotional crisis since his mother past away. Patient had not slept for 3 days prior to admission. Patient is admitted to psychiatry for grief reaction with history of bipolar disease. atient denies any fever, chills, shortness of breath, chest pain, diarrhea, nausea, vomiting, urinary symptoms, back pain, neck pain, headache, dizziness, SI, HI, or any other complaints. Review of Systems - Review of Systems All systems: reviewed and no additional remarkable complaints except (12 point ROS reviewed and is negative other than what is stated in HPI.) Past Patient History - Tetanus Immunizations Tetanus Immunization: Unknown - Past Social History Smoking Status: Heavy Smoker > 10 Cigarettes Daily - CARDIAC Hx Cardiac Disorders: No - PULMONARY Hx Respiratory Disorders: Yes Hx Emphysema: Yes - NEUROLOGICAL Hx Neurological Disorder: Yes Other/Comment: TBI as infant s/p citizen [place] measles. - HEENT Hx HEENT Problems: No - RENAL Hx Chronic Kidney Disease: No - ENDOCRINE/METABOLIC Hx Endocrine Disorders: No - HEMATOLOGICAL/ONCOLOGICAL Hx Blood Disorders: No - INTEGUMENTARY Hx Dermatological Problems: No - MUSCULOSKELETAL/RHEUMATOLOGICAL Hx Musculoskeletal Disorders: No - GASTROINTESTINAL Hx Gastrointestinal Disorders: No - GENITOURINARY/GYNECOLOGICAL Hx Genitourinary Disorders: No - PSYCHIATRIC Hx Psychophysiologic Disorder: No Hx Substance Use: No - SURGICAL HISTORY Hx Surgeries: No - ANESTHESIA Hx Anesthesia: No Hx Anesthesia Reactions: No Hx Malignant Hyperthermia: No Meds Allergies/Adverse Reactions: Allergies Allergy/AdvReac Type Severity Reaction Status Date / Time No Known Allergies Allergy Verified 03/14/17 09:39 - Medications Medications: Current Medications Acetaminophen (Tylenol 325mg Tab) 650 mg PO Q4H PRN PRN Reason: Pain, moderate (4-7) Al Hydrox/Mg Hydrox/Simethicone (Maalox Plus 30 Ml) 30 ml PO DAILY PRN PRN Reason: Indigestion / Heartburn Chlorpromazine (Thorazine) 50 mg PO Q6 PRN; Protocol PRN Reason: Agitation Divalproex Sodium (Depakote Dr (*Bid*)) 250 mg PO [facility]; Protocol Last Admin: 02/05/18 09:22 Dose: 250 mg Magnesium Hydroxide (Milk Of Magnesia) 30 ml PO DAILY PRN PRN Reason: Constipation Quetiapine Fumarate (Seroquel) 50 mg PO HS [facility]; Protocol Last Admin: 02/04/18 22:57 Dose: 50 mg Zaleplon (Sonata) 5 mg PO HS PRN PRN Reason: Insomnia Physical Exam - Constitutional Appears: No Acute Distress - Head Exam Head Exam: NORMAL INSPECTION - Eye Exam Eye Exam: Normal appearance Pupil Exam: NORMAL ACCOMODATION - ENT Exam ENT Exam: Mucous Membranes Moist, Normal Exam - Neck Exam Neck exam: Positive for: Normal Inspection - Respiratory Exam Respiratory Exam: Clear to Auscultation Bilateral, NORMAL BREATHING PATTERN - Cardiovascular Exam Cardiovascular Exam: REGULAR RHYTHM - GI/Abdominal Exam GI & Abdominal Exam: Normal Bowel Sounds, Soft - Extremities Exam Extremities exam: Positive for: normal inspection - Back Exam Back exam: NORMAL INSPECTION - Neurological Exam Neurological exam: Alert, CN II-XII Intact, Oriented x3, Reflexes Normal - Psychiatric Exam Psychiatric exam: Normal Mood - Skin Skin Exam: Normal Color Results - Vital Signs Recent Vital Signs: Last Vital Signs Temp 97.8 F 02/05/18 07:05 Pulse 63 02/05/18 07:05 Resp 19 02/05/18 07:05 BP 155/83 H 02/05/18 07:05 Pulse Ox 100 02/02/18 21:45 - Labs Result Diagrams: 02/02/18 11:05 02/02/18 11:05 Assessment & Plan - Assessment and Plan (Free Text) Assessment: 63 yo M with PMH of bipolar disease is admitted for grief reaction. Patient is neurologically intact and shows no deficits. Recommend continued management per psych. At this time, the patient is clear from neurology standpoint. We will sign off. Please reconsult as needed. Thank you for the consultation. Patient seen and discussed in detail with Dr. Holbrook. Teodoro Fong, DO PGY2
[2018-02-06 07:05] VITALS: RESP 20
[2018-02-06] MEDS: Divalproex 250 mg DR (BID formulation) PO SCH ×2 (09:30→21:13)
--- NOTE | 2018-02-06 16:16 | PCM.PYCHPN ---
Psychiatric Progress Note - Psychiatric Progress Note Patient seen today, length of contact: 30 minutes Patient Chief Complaint: "I am feeling fine, I was sleep deprived, I was very confused, as you know my mother just " Problems Identified/Issues Discussed: Pt will be not depressed or manic, will be more hopeful, will be not psychotic or anxious, will be not having thoughts of harming self or others, will be tolerating medications well, will not have major side effects, will be able to function, will not pose threat to self or others. Medical Problems: Patient was seen by medical team in the emergency room, patient also was seen by neurology Diagnostic Results: 02/02/18 11:05 02/02/18 11:05 Lab Results 02/02/18 12:05: Urine Color Yellow, Urine Appearance Clear, Urine pH 7.0, Ur Specific [place] <= 1.005, Urine Protein Negative, Urine Glucose (UA) Negative, Urine Ketones Negative, Urine Blood Negative, Urine Nitrate Negative, Urine Bilirubin Negative, Urine Urobilinogen 0.2, Ur Leukocyte Esterase Negative 02/02/18 12:05: Urine Opiates Screen Negative, Urine Methadone Screen Negative, Ur Barbiturates Screen Negative, Ur Phencyclidine Scrn Negative, Ur Amphetamines Screen Negative, U Benzodiazepines Scrn Negative, U Oth Cocaine Metabols Negative, U Cannabinoids Screen Negative 02/02/18 11:05: Free T4 1.07, TSH 3rd Generation 2.37, Alcohol, Quantitative < 10 02/02/18 11:05: Sodium 140, Potassium 3.6, Chloride 107, Carbon Dioxide 31, Anion Gap 6 L, BUN 17, Creatinine 0.8, Est GFR ( Amer) > 60, Est GFR (Non-Af Amer) > 60, Random Glucose 122 H, Calcium 9.7, Total Bilirubin 0.5, AST 27, ALT 27, Alkaline Phosphatase 80, Total Protein 6.7, Albumin 4.0, Globulin 2.7, Albumin/Globulin Ratio 1.5 02/02/18 11:05: WBC 9.9, RBC 4.60, Hgb 15.5, Hct 46.0, MCV 100.0, MCH 33.7, MCHC 33.7, RDW 13.4, Plt Count 250, MPV 9.6, Gran % 75.4 H, Lymph % (Auto) 19.3 L, [place] % (Auto) 4.7, Eos % (Auto) 0.3 L, Baso % (Auto) 0.3, Gran # 7.47 H, Lymph # (Auto) 1.9, [place] # (Auto) 0.5, Eos # (Auto) 0.0, Baso # (Auto) 0.03 02/02/18 11:05: Salicylates < 1 L, Acetaminophen < 10.0 L Vital Signs Temp Pulse Resp BP Pulse Ox 02/06/18 07:04 97.8 F 64 20 156/110 H 02/05/18 15:00 97.3 F L 80 16 161/85 H 02/05/18 07:05 97.8 F 63 19 155/83 H 02/04/18 17:25 64 156/79 H 02/04/18 07:00 97.9 F 63 18 152/87 H 02/03/18 07:25 98.5 F 66 20 139/83 02/02/18 22:54 18 02/02/18 21:45 70 18 144/87 100 02/02/18 18:00 72 16 159/69 H 99 02/02/18 16:00 72 18 153/69 H 98 02/02/18 14:55 69 18 159/88 H 98 02/02/18 12:38 72 18 169/72 H 98 02/02/18 10:59 98.0 F 76 16 173/95 H 98 DSM 5 Symptoms Update: Patient is a 62 yo single male with a reported psychiatric history of bipolar disorder, no prior psychiatric admissions, history of treatment of vincent with lithium x25 years ago e who was brought to the ER by his brother, Chinmay Lloyd (who is reportedly his POA) for a psychiatric evaluation after patient demonstrated change in mental status and behavior following the of his mother a few days ago. According to ER records patient is now living alone after his mother a few days ago. Patient has not been sleeping for 3-4 days and acting impulsively/bizarrely. Apparently he recently went out at night stealing [place] trees from a local shop. Patient's brother is patient's POA and feels that patient cannot care for himself. POA indicated that patient suffered a TBI as an infant and had [place] measles as a child. Patient was seen and examined today next to the nursing station, patient presented to be alert and oriented, pleasant cooperative, patient reported that she was feeling confused after the of her mother because he was not able to sleep, patient reported that he is aware of all of the circumstances of his admission to the psychiatric inpatient unit, patient reported that now he feels "much better, I feel normal myself". 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 Patient reported that he is able to drive, was able to live independently. Going back to patient's POA statement that patient was not able to take care of himself, from this display card writer perspective it is not accurate because patient lived independently, was driving, working. So far patient tolerates medications well, no side effects observed or reported, aims 0, no EPS. Patient denies any hallucinations, paranoia, SI or HI. PSYCHIATRIC HISTORY Prior diagnosis of bipolar disorder. Treated >25 years ago for a manic episode. No current outpatient treatment or medications. Impression: Acute stress reaction to be ruled out Delirium due to sleep deprivation As per history of bipolar disorder. Medication Change: No Medical Record Reviewed: Yes Consults ordered or reviewed: Medical consult was done in the emergency room, neurology consult appreciated. Mental Status Examination - Cognitive Function Orientation: Person, Place Attention: WNL Concentration: WNL Association: Loose Fund of Knowledge: Poor - Mood Mood: Depressed ("I feel much better") - Affect Affect: Constricted (but very pleasant) - Speech Speech: Appropriate - Formal Thought Process Formal Thought Process: No Impairment - Suicidal Ideation Suicidal Ideation: No - Homicidal Ideation Homicidal Ideation: No Goal/Treatment Plan - Goal/Treatment Plan Need for Continued Stay: Remain at risks for inpatient hospitalization, Severe depression anxiety, Discharge may exacerbated symptoms, Severe functional impairment Progress Toward Problem(s) and Goals/Treatment Plan: Milieu/structure/supportive therapy Medical consult appreciated, see medical team note for more detailed info SW consultation for discharge plan and social issues Depakote 250 mg AM and HS for mood stabilization Seroquel 50 mg po HS for disorganization Sonata 5 mg HS prn: insomnia Family involvement Follow up on labs Will monitor closely Pt was educated about risk/benefits and alternatives of medications, coping strategies (safety plan, suicide prevention), relapse prevention, importance of follow up with psychiatrist and therapist, stay away from drugs/alcohol/smoking Estimated Date of D/C: 02/07/18
[2018-02-07 07:11] VITALS: BP 155/88; PULSE 74; TEMP 98.7
[2018-02-07] MEDS: Divalproex 250 mg DR (BID formulation) PO SCH (08:22)
--- NOTE | 2018-02-07 16:50 | PCM.PYCHDC ---
Mental Status Examination - Mental Status Examination Orientation: Person, Place, Situation, Time Memory: Intact Mood: Neutral Affect: Constricted (But reactive and mood congruent) Speech: Appropriate Attention: WNL Concentration: WNL Association: WNL Fund of Knowledge: WNL Formal Thought Process: No Impairment Description of patient's judgement and insight: Pt has improved insight into mental and medical illness, pt was compliant with medications and unit rules and regulations, pt was going to groups, was calm, cooperative, socially appropriate, no behavioral incidents, no agitation, no aggression. Psychotic Thoughts and Behaviors: Pt denied v/a/t hallucinations, denied paranoid ideations, pt does not appear to be psychotic, and thought process is goal directed. Suicidal Ideation: No Current Homicidal Ideation?: No Plan: pt adamantly denied thoughts of harming self or others denied intent or plan. Discharge Summary - Discharge Note Reason for Hospitalization: Disorganized behavior please see admission note for more detailed information Psychiatric History (includes Medical, Family, Personal Hx): History of bipolar disorder Laboratory Data: 02/02/18 11:05 02/02/18 11:05 Lab Results 02/02/18 12:05: Urine Color Yellow, Urine Appearance Clear, Urine pH 7.0, Ur Specific [place] <= 1.005, Urine Protein Negative, Urine Glucose (UA) Negative, Urine Ketones Negative, Urine Blood Negative, Urine Nitrate Negative, Urine Bilirubin Negative, Urine Urobilinogen 0.2, Ur Leukocyte Esterase Negative 02/02/18 12:05: Urine Opiates Screen Negative, Urine Methadone Screen Negative, Ur Barbiturates Screen Negative, Ur Phencyclidine Scrn Negative, Ur Amphetamines Screen Negative, U Benzodiazepines Scrn Negative, U Oth Cocaine Metabols Negative, U Cannabinoids Screen Negative 02/02/18 11:05: Free T4 1.07, TSH 3rd Generation 2.37, Alcohol, Quantitative < 10 02/02/18 11:05: Sodium 140, Potassium 3.6, Chloride 107, Carbon Dioxide 31, Anion Gap 6 L, BUN 17, Creatinine 0.8, Est GFR ( Amer) > 60, Est GFR (Non-Af Amer) > 60, Random Glucose 122 H, Calcium 9.7, Total Bilirubin 0.5, AST 27, ALT 27, Alkaline Phosphatase 80, Total Protein 6.7, Albumin 4.0, Globulin 2.7, Albumin/Globulin Ratio 1.5 02/02/18 11:05: WBC 9.9, RBC 4.60, Hgb 15.5, Hct 46.0, MCV 100.0, MCH 33.7, MCHC 33.7, RDW 13.4, Plt Count 250, MPV 9.6, Gran % 75.4 H, Lymph % (Auto) 19.3 L, [place]hing % (Auto) 4.7, Eos % (Auto) 0.3 L, Baso % (Auto) 0.3, Gran # 7.47 H, Lymph # (Auto) 1.9, Pershing # (Auto) 0.5, Eos # (Auto) 0.0, Baso # (Auto) 0.03 02/02/18 11:05: Salicylates < 1 L, Acetaminophen < 10.0 L Vital Signs Temp Pulse Resp BP Pulse Ox 02/07/18 07:00 98.7 F 74 20 155/88 H 02/06/18 16:00 70 143/72 02/06/18 07:04 97.8 F 64 20 156/110 H 02/05/18 15:00 97.3 F L 80 16 161/85 H 02/05/18 07:05 97.8 F 63 19 155/83 H 02/04/18 17:25 64 156/79 H 02/04/18 07:00 97.9 F 63 18 152/87 H 02/03/18 07:25 98.5 F 66 20 139/83 02/02/18 22:54 18 02/02/18 21:45 70 18 144/87 100 02/02/18 18:00 72 16 159/69 H 99 02/02/18 16:00 72 18 153/69 H 98 02/02/18 14:55 69 18 159/88 H 98 02/02/18 12:38 72 18 169/72 H 98 02/02/18 10:59 98.0 F 76 16 173/95 H 98 Consultations:: List each consultation separately and include: 1. Reason for request. 2. Findings. 3. Follow-up Consultations: Medical consult was done in the emergency room, neurology consult appreciated. Summary of Hospital Course include:: 1. Description of specific treatment plan utilized for patients during their course of treatmen. 2. Summarize the time- course for resolution of acute symptoms and/or regressed behaviors. 3. Describe issues identified and worked on during hospitalization. 4. Describe medication utilized. 5. Describe medical problems identified and treated. 6. Reassessment of suicide risk Summary of Hospital Course: Patient is a 62 yo single male with a reported psychiatric history of bipolar disorder, no prior psychiatric admissions, history of treatment of vincent with lithium x25 years ago e who was brought to the ER by his brother, Chinmay Lloyd (who is reportedly his POA) for a psychiatric evaluation after patient demonstrated change in mental status and behavior following the of his mot her a few days ago. According to ER records patient is now living alone after his mother a few days ago. Patient has not been sleeping for 3-4 days and acting impulsively/bizarrely. Apparently he recently went out at night stealing [employer] trees from a local shop. Patient's brother is patient's POA and feels that patient cannot care for himself. POA indicated that patient suffered a TBI as an infant and had [place] measles as a child. Please see admission note for more detailed information. Patient was stabilized on the following medication: Depakote 250 mg AM and HS for mood stabilization Seroquel 50 mg po HS for disorganization Sonata 5 mg HS prn: insomnia patient tolerates medications well, no side effects observed or reported, aims 0, no EPS. Patient denies any hallucinations, paranoia, SI or HI. Over the course of this hospitalization pt was attending groups, pt also had medication management, had therapeutic milieu. Overall pt improved significantly, pt's affect became brighter, pt was less depressed, has realistic future oriented plans, pt also does not appear to be psychotic, or anxious, pt was socially appropriate, no behavioral issues, pts insight improved as well and soon pt deemed to be ready for discharge. At the time of the discharge pt denied been depressed, denied thoughts of harming self or others, denied psychotic symptoms, and pt does not appeared to be psychotic, denied been anxious, pt is not in imminent danger to self or ot hers, pt was referred to outpatient program, information about follow up appointment, time and address provided to the pt, it is patient responsibility to follow up with [facility] health clinic, PMD as well as specialists (see SW note for more detailed information). In case pt will need to obtain results of studies pending at discharge pt was provided with contact information of Psychiatric Inpatient unit [phone] as well as Medical Record Department [phone]. Naltrexone treatment not indicated at this time. Patient denies using drugs, denies smoking pt was provided with prescriptions for all of medications (please see medication reconciliation form) Pt was educated about safety plan in case of worsening of symptoms or in case of suicidal or homicidal ideation call 911 or go to the nearest ER, also was educated to take meds as prescribed and stay away from drugs, pt verbalized understanding. - Diagnosis (1) Delirium Status: Acute Priority: Medium (2) Adjustment disorder Status: Acute Priority: High - Final Diagnosis (DSM 5) Condition upon Discharge: STABLE Disposition: HOME/ ROUTINE Follow-up Treatment Plan: At the time of the discharge pt denied been depressed, denied thoughts of harming self or others, denied psychotic symptoms, and pt does not appeared to be psychotic, denied been anxious, pt is not in imminent danger to self or others, pt was referred to outpatient program, information about follow up appointment, time and address provided to the pt, it is patient responsibility to follow up with [facility] health clinic, PMD as well as specialists (see SW note for more detailed information). In case pt will need to obtain results of studies pending at discharge pt was provided with contact information of Psychiatric Inpatient unit [phone] as well as Medical Record Department [phone]. Naltrexone treatment not indicated at this time. Patient denies using drugs, denies smoking pt was provided with prescriptions for all of medications (please see medication reconciliation form) Pt was educated about safety plan in case of worsening of symptoms or in case of suicidal or homicidal ideation call 911 or go to the nearest ER, also was educated to take meds as prescribed and stay away from drugs, pt verbalized understanding. Prescriptions/Medication Reconciliation: Divalproex [Depakote DR (*BID*)] 250 mg PO AMHS #30 tcp QUEtiapine [SEROquel] 50 mg PO HS #14 tab - Smoking Cessation Smoking Cessation Medication prescribed: No Reason for not providing: Patient denied smoking - Antipsychotic Medications Pt discharged on 2 or more routine antipsychotic medications: No
== END 2018-02-07 13:00 | disposition home or self-care (01) | DRG 427 ==
LOC: ED 10:38 → ERH 15:17 → PSYC 21:54
PROVIDERS: ADMIT Psychiatry & Neurology Psychiatry; ATTEND Psychiatry & Neurology Psychiatry
PROC: GZ3ZZZZ Medication Management (ICD-10-PCS; principal; 2018-02-03)
DX: F43.20 Adjustment disorder, unspecified (principal); F31.9 Bipolar disorder, unspecified; F17.210 Nicotine dependence, cigarettes, uncomplicated; Z72.820 Sleep deprivation